=== PATIENT | female | born 2005 | race Caucasian/White ===

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

== ENCOUNTER → 2024-05-24 | Outpatient (CLI) | payer OTHER ==
[~2024-05-24] MED LIST changes: +CEPH500 PO
== END ==
LOC: LAB 18:43 → LAB SHORT 18:43
DX: N39.0 Urinary tract infection, site not specified (principal)
CPT/HCPCS: 87077; 87086; 87186

== ENCOUNTER 2024-08-17 14:35 | Emergency (ER) | payer OTHER ==
[~2024-08-17] VITALS: Ht 157.5 cm; Wt 61.2 kg
[2024-08-17 14:40] VITALS: BP 126/73
== END 2024-08-17 16:07 | disposition home or self-care (01) ==
LOC: ER 14:35
DX: R09.1 Pleurisy (principal); Z59.89 Other problems related to housing and economic circumstances
CPT/HCPCS: 71046; 93005; 93010; 99284-25